=== PATIENT | male | born 1970 | race Caucasian/White ===

== ENCOUNTER 2019-11-01 17:42 | Inpatient (IN) | payer OTHER ==
[~2019-11-01] VITALS: Ht 185.4 cm; Wt 112.5 kg
[~2019-11-01 17:42] MED LIST: CEPH500; CYCL10 PO; IBUP200 PO; NAPR550 PO; OXYACE5T PO; RXCYCL10 PO; RXNAPNA550 PO; SULTRIDS PO; TRAM50 PO
[2019-11-01 20:18] LABS: BASOPHILS ABSOLUTE AUTO 0.02 K/mm3 (0.00-0.23); BASOPHILS PERCENT AUTO 0 % (0-2); EOSINOPHILS ABSOLUTE AUTO 0.11 K/mm3 (0.00-0.68); EOSINOPHILS PERCENT AUTO 1 % (0-6); Hematocrit 40.4 % (37.0-53.0); Hemoglobin 13.7 g/dL (13.5-17.5); IMMATURE GRAN ABSOLUTE AUTO 0.04 K/mm3 (0.00-0.10); IMMATURE GRAN PERCENT AUTO 0 % (0-1); LYMPHOCYTES ABSOLUTE AUTO 1.82 K/mm3 (0.84-5.20); LYMPHOCYTES PERCENT AUTO 15 % (21-46); MONOCYTES ABSOLUTE AUTO 0.88 K/mm3 (0.16-1.47); MONOCYTES PERCENT AUTO 7 % (4-13); Mean Corpuscular HGB 31.5 pg (26.0-34.0); Mean Corpuscular HGB Conc 33.9 g/dL (31.5-36.5); Mean Corpuscular Volume 93 fL (80-100); NEUTROPHILS ABSOLUTE AUTO 9.07 K/mm3 (1.96-9.15); NEUTROPHILS PERCENT AUTO 76 % (41-73); Platelet Count 203 K/mm3 (150-400); RDW Coefficient Variation 11.3 % (11.7-14.2); RDW Standard Deviation 38.9 fL (35.1-46.3); Red Blood Cell Count 4.35 M/mm3 (4.30-5.90); White Blood Cell Count 11.94 K/mm3 (4.00-11.30)
[2019-11-01 21:17] LABS: Anion Gap 6 mmol/L (6-16); Blood Urea Nitrogen 14 mg/dL (8-24); Bun/Creatinine Ratio 16.4 (12.0-20.0); CO2, Blood 26 mmol/L (21-32); Calcium, Blood 8.7 mg/dL (8.5-10.1); Chloride, Blood 102 mmol/L (98-108); Creatinine, Blood 0.85 mg/dL (0.60-1.20); Glomerular Filtration Rate >60 (60-); Glucose, Blood 228 mg/dL (70-99); Potassium, Blood 3.9 mmol/L (3.5-5.5); Sodium, Blood 134 mmol/L (136-145)
[2019-11-01] MEDS ORDERED: METF500 PO (22:30)
[2019-11-01] MEDS ORDERED: NAPR500ERA PO (22:31)
[2019-11-01] MEDS ORDERED: SULTRIDS PO (22:31)
--- NOTE | 2019-11-02 04:00 | NUR ---
SHIFT SUMMARY FOREIGN OBJECT IN ULCER, INFERIOR L FOOT. A/O, VSS, TOLERATED PO PRIOR TO NPO AT MIDNIGHT, VOIDING WELL, AMBULATES INDEPENDENTLY, USES CALL LIGHT APPROPRIATELY. REPORTS USING CBD GUMMY EVERY NIGHT TO HELP HIM SLEEP. REPORTS PAIN AT 2-3 OUT OF 10 ON A 0-10 SCALE, REFUSED PAIN MEDICATIONS DURING ADMISSION, ENCOURAGED TO REQUEST THEM IF PAIN INCREASED BEYOND ACCEPTABLE TOLERANCE. ULCER PHOTOGRAPHED AND PLACED IN CHART, PACKING PRESENT AT TIME OF ADMISSION FROM [facility] FELL OUT WHEN PT GOT IN BED, COVERED ULCER W/ STERILE GUAZE AND WATERPROOF WINDOW DRESSING, CONSULT FOR PODIATRY IN PLACE. WILL CONTINUE TO MONITOR AND WILL REPORT TO ONCOMING DAY RN.
[2019-11-02 04:58] LABS: BASOPHILS ABSOLUTE AUTO 0.02 K/mm3 (0.00-0.23); BASOPHILS PERCENT AUTO 0 % (0-2); EOSINOPHILS ABSOLUTE AUTO 0.14 K/mm3 (0.00-0.68); EOSINOPHILS PERCENT AUTO 1 % (0-6); Hematocrit 37.3 % (37.0-53.0); Hemoglobin 12.6 g/dL (13.5-17.5); IMMATURE GRAN ABSOLUTE AUTO 0.04 K/mm3 (0.00-0.10); IMMATURE GRAN PERCENT AUTO 0 % (0-1); LYMPHOCYTES ABSOLUTE AUTO 1.26 K/mm3 (0.84-5.20); LYMPHOCYTES PERCENT AUTO 11 % (21-46); MONOCYTES PERCENT AUTO 9 % (4-13); Mean Corpuscular HGB Conc 33.8 g/dL (31.5-36.5); Mean Corpuscular Volume 92 fL (80-100); Mean Platelet Volume 10.4 fL (9.1-12.4); NEUTROPHILS ABSOLUTE AUTO 9.22 K/mm3 (1.96-9.15); NEUTROPHILS PERCENT AUTO 79 % (41-73); Platelet Count 180 K/mm3 (150-400); RDW Coefficient Variation 11.4 % (11.7-14.2); RDW Standard Deviation 38.6 fL (35.1-46.3); Red Blood Cell Count 4.07 M/mm3 (4.30-5.90); White Blood Cell Count 11.68 K/mm3 (4.00-11.30)
[2019-11-02 05:10] LABS: International Normalized Ratio 1.12; Prothrombin Time Results 11.9 Sec (9.7-11.5)
[2019-11-02 05:20] LABS: Anion Gap 5 mmol/L (6-16); Blood Urea Nitrogen 14 mg/dL (8-24); Bun/Creatinine Ratio 18.2 (12.0-20.0); CO2, Blood 26 mmol/L (21-32); Calcium, Blood 8.4 mg/dL (8.5-10.1); Chloride, Blood 107 mmol/L (98-108); Creatinine, Blood 0.77 mg/dL (0.60-1.20); Glomerular Filtration Rate >60 (60-); Glucose, Blood 250 mg/dL (70-99); Potassium, Blood 4.1 mmol/L (3.5-5.5); Sodium, Blood 138 mmol/L (136-145)
--- NOTE | 2019-11-02 07:00 | NUR ---
recvd report from previous shift RN Conner/Dain. pt in the shower independently, call light on bedside table, bed in lowest position.
--- NOTE | 2019-11-02 10:30 | NUR ---
DR UREÑA IN ROOM WITH PT; THIS RN ASSISTED DR UREÑA IN BEDSIDE PROCEDURE
--- NOTE | 2019-11-02 12:00 | NUR ---
wound clinic nurse rounding on pt. certified art therapist provided pt with diebetic diet education
--- NOTE | 2019-11-02 20:54 | NUR ---
PT C/O FEELING COLD. TEMP 101.5 ALSO C/O "CAFFEINE H/A" PT REPORTS DRINKING MULTIPLE PEPSI DRINKS PER DAY AND IS NOW NEWLY DIAGNOSED DIABETIC. PT ANXIOUS. C/O FEELING LIKE HE IS IN "NURSING HOME" DUE TO BEING IN HOSPITAL FOR TREATMENT. PT ALSO C/O TACHYCARDIA WITH VANCO DOSES.PT VERB IN AM HE IS GOING TO "TAKE IT UP" WITH DR REGARDING POSSIBILITY OF OUTPT IV ANTIBIOTIC TREATMENT.DISCUSSED WITH PT POSSIBILITY OF SUGAR FREE CAFFEINATED DRINKS.REMOVED BLANKETS.NOTED L FOOT SWOLLEN WITH INCREASED WARMTH TO CALF AND FOOT.REFILL BRISK.HX NEUROPATHY BLE.ALTHOUGH C/O FEELING DR PLACED GEOVANNA WRAP TOO TIGHT.I DISCUSSED WITH PT WILL ELEVATE LLE ON PILLOWS,LOOSEN GEOVANNA WRAP,AND PLACE ICE TO ASSIST IN DECREASING SWELLING.I CALLED DR RAFI WRAY FOR HOSPITALIST AND REVIEWED ALL CONCERNS AND PT C/O PER ABOVE.TORADOL AND ATIVAN ORDERS RECEIVED.
[2019-11-03 05:30] LABS: BASOPHILS ABSOLUTE AUTO 0.02 K/mm3 (0.00-0.23); BASOPHILS PERCENT AUTO 0 % (0-2); EOSINOPHILS ABSOLUTE AUTO 0.17 K/mm3 (0.00-0.68); EOSINOPHILS PERCENT AUTO 2 % (0-6); Hematocrit 36.8 % (37.0-53.0); Hemoglobin 12.5 g/dL (13.5-17.5); IMMATURE GRAN ABSOLUTE AUTO 0.03 K/mm3 (0.00-0.10); IMMATURE GRAN PERCENT AUTO 0 % (0-1); LYMPHOCYTES ABSOLUTE AUTO 1.05 K/mm3 (0.84-5.20); LYMPHOCYTES PERCENT AUTO 11 % (21-46); MONOCYTES ABSOLUTE AUTO 0.72 K/mm3 (0.16-1.47); MONOCYTES PERCENT AUTO 8 % (4-13); Mean Corpuscular HGB 31.3 pg (26.0-34.0); Mean Corpuscular Volume 92 fL (80-100); Mean Platelet Volume 9.9 fL (9.1-12.4); NEUTROPHILS ABSOLUTE AUTO 7.51 K/mm3 (1.96-9.15); NEUTROPHILS PERCENT AUTO 79 % (41-73); Platelet Count 180 K/mm3 (150-400); RDW Coefficient Variation 11.2 % (11.7-14.2); RDW Standard Deviation 38.6 fL (35.1-46.3)
[2019-11-03 05:53] LABS: Anion Gap 6 mmol/L (6-16); Blood Urea Nitrogen 14 mg/dL (8-24); Bun/Creatinine Ratio 20.1 (12.0-20.0); CO2, Blood 25 mmol/L (21-32); Calcium, Blood 8.5 mg/dL (8.5-10.1); Chloride, Blood 105 mmol/L (98-108); Glomerular Filtration Rate >60 (60-); Glucose, Blood 222 mg/dL (70-99); Potassium, Blood 4.1 mmol/L (3.5-5.5); Sodium, Blood 136 mmol/L (136-145)
[2019-11-03 06:22] LABS: Vancomycin, Trough 5.8 ug/mL (5.0-10.0)
--- NOTE | 2019-11-03 07:12 | NUR ---
SUMMARY PT PASSING SHALOM SIMONS.ANESTHESIA HERE THIS AM AND DCD EPIDURAL.
--- NOTE | 2019-11-03 07:19 | NUR ---
SUMMARY PT AFEBRILE S/P TORADOL.VERB ADEQUATE PAIN CONTROL AND PLEASED WITH SLEEP.
--- NOTE | 2019-11-03 08:00 | NUR ---
dr macedotrate rounding on pt
--- NOTE | 2019-11-03 13:45 | NUR ---
pt outside in wheelchair with SO escorting
--- NOTE | 2019-11-03 18:54 | NUR ---
shift summary: pt a/0 x 4, pleasant/cooperative, pain controlled per MAR, tolerating ADA diet, showered himself today, urinary output 3 x unmeasured voids. pt visited with SO this shift. CBG [phone] this shift, received orders for change to medium sliding scale. Dressing change x 1 this shift.
[2019-11-03 21:23] LABS: Vancomycin, Trough 11.3 ug/mL (5.0-10.0)
[2019-11-04 04:54] LABS: BASOPHILS ABSOLUTE AUTO 0.03 K/mm3 (0.00-0.23); BASOPHILS PERCENT AUTO 0 % (0-2); EOSINOPHILS ABSOLUTE AUTO 0.29 K/mm3 (0.00-0.68); EOSINOPHILS PERCENT AUTO 3 % (0-6); Hematocrit 33.4 % (37.0-53.0); Hemoglobin 11.4 g/dL (13.5-17.5); IMMATURE GRAN ABSOLUTE AUTO 0.02 K/mm3 (0.00-0.10); IMMATURE GRAN PERCENT AUTO 0 % (0-1); LYMPHOCYTES ABSOLUTE AUTO 1.58 K/mm3 (0.84-5.20); LYMPHOCYTES PERCENT AUTO 19 % (21-46); MONOCYTES ABSOLUTE AUTO 0.81 K/mm3 (0.16-1.47); MONOCYTES PERCENT AUTO 10 % (4-13); Mean Corpuscular HGB 31.3 pg (26.0-34.0); Mean Corpuscular HGB Conc 34.1 g/dL (31.5-36.5); Mean Corpuscular Volume 92 fL (80-100); Mean Platelet Volume 10.2 fL (9.1-12.4); NEUTROPHILS ABSOLUTE AUTO 5.73 K/mm3 (1.96-9.15); NEUTROPHILS PERCENT AUTO 68 % (41-73); Platelet Count 190 K/mm3 (150-400); RDW Coefficient Variation 11.3 % (11.7-14.2); RDW Standard Deviation 38.3 fL (35.1-46.3); Red Blood Cell Count 3.64 M/mm3 (4.30-5.90); White Blood Cell Count 8.46 K/mm3 (4.00-11.30)
[2019-11-04 05:16] LABS: Anion Gap 6 mmol/L (6-16); Blood Urea Nitrogen 10 mg/dL (8-24); Bun/Creatinine Ratio 13.5 (12.0-20.0); CO2, Blood 27 mmol/L (21-32); Calcium, Blood 8.3 mg/dL (8.5-10.1); Chloride, Blood 102 mmol/L (98-108); Creatinine, Blood 0.74 mg/dL (0.60-1.20); Glomerular Filtration Rate >60 (60-); Glucose, Blood 191 mg/dL (70-99); Sodium, Blood 135 mmol/L (136-145)
--- NOTE | 2019-11-04 06:45 | NUR ---
SUMMARY PT STATES FEEING BETTER TONIGHT.TOLERATING PO.WBC IMPROVING.
--- NOTE | 2019-11-04 19:48 | NUR ---
SHIFT SUMMARY PT A&OX4, VSS, DENIES PAIN, DENIES N&V, WILMA PO. IV ABX INFUSED PER EMAR. POD2 I&D BEDSIDE, PACKING AND DRESSING CHANGED BY EQUIP MAINT ENG THIS AM; PLAN FOR DRESSING CHANGE IN 3 DAYS FROM TODAY; PT WILL NEED ABX X7DAYS; DC GYROSCOPE REPAIRER WORKING ON DC PLAN FOR ABX/HH. PT AMBULATING TO BRP AND UP TO CHAIR; NWB/HEEL TOUCH/ORTHO SHOE. REPORT PROVIDED TO LUCRECIA FINNEGAN.
--- NOTE | 2019-11-05 04:42 | NUR ---
SHIFT SUMMARY: PT POD#3 FOR I&D TO ULCER ON LEFT FOOT. WOUND PACKED WITH IODOFORM AND COVERED WITH GAUZE AND GEOVANNA WRAP. DRESSING C/D/I WITH A SCANT AMOUNT OF SEROSANGUINOUS DRG NOTED TO GAUZE. PT ABLE TO WIGGLE TOES. REPORTS N/T AT BASELINE. LLE WARM TO TOUCH, SWOLLEN AND RED. PT REPORTS SWELLING HAS DECREASED SINCE YESTERDAY. PT AMBULATING TO BATHROOM INDEPENDENTLY. ORTHO BOOT WITH AMBULATION. IV ABX INFUSING PER ORDERS. CBG 230 LAST NIGHT. PT COVERED WITH 5 UNITS OF HUMALOG PER MEDIUM SS.
[2019-11-05 05:08] LABS: BASOPHILS ABSOLUTE AUTO 0.03 K/mm3 (0.00-0.23); BASOPHILS PERCENT AUTO 0 % (0-2); EOSINOPHILS ABSOLUTE AUTO 0.26 K/mm3 (0.00-0.68); EOSINOPHILS PERCENT AUTO 4 % (0-6); Hematocrit 38.2 % (37.0-53.0); Hemoglobin 12.7 g/dL (13.5-17.5); IMMATURE GRAN ABSOLUTE AUTO 0.03 K/mm3 (0.00-0.10); IMMATURE GRAN PERCENT AUTO 0 % (0-1); LYMPHOCYTES ABSOLUTE AUTO 1.76 K/mm3 (0.84-5.20); LYMPHOCYTES PERCENT AUTO 24 % (21-46); MONOCYTES ABSOLUTE AUTO 0.65 K/mm3 (0.16-1.47); MONOCYTES PERCENT AUTO 9 % (4-13); Mean Corpuscular HGB 30.5 pg (26.0-34.0); Mean Corpuscular HGB Conc 33.2 g/dL (31.5-36.5); Mean Corpuscular Volume 92 fL (80-100); Mean Platelet Volume 9.9 fL (9.1-12.4); NEUTROPHILS ABSOLUTE AUTO 4.64 K/mm3 (1.96-9.15); NEUTROPHILS PERCENT AUTO 63 % (41-73); Platelet Count 209 K/mm3 (150-400); RDW Coefficient Variation 11.2 % (11.7-14.2); RDW Standard Deviation 37.9 fL (35.1-46.3); Red Blood Cell Count 4.17 M/mm3 (4.30-5.90); White Blood Cell Count 7.37 K/mm3 (4.00-11.30)
[2019-11-05 05:37] LABS: Anion Gap 5 mmol/L (6-16); Blood Urea Nitrogen 9 mg/dL (8-24); Bun/Creatinine Ratio 11.8 (12.0-20.0); CO2, Blood 30 mmol/L (21-32); Calcium, Blood 8.9 mg/dL (8.5-10.1); Chloride, Blood 102 mmol/L (98-108); Creatinine, Blood 0.76 mg/dL (0.60-1.20); Glomerular Filtration Rate >60 (60-); Glucose, Blood 167 mg/dL (70-99); Sodium, Blood 137 mmol/L (136-145)
--- NOTE | 2019-11-05 15:04 | NUR ---
SHIFT SUMMARY PT A&OX4, VSS, POD3 LEFT FOOT I&D, PACKING/GAUZE/GEOVANNA WRAP DRY/INTACT, ELEVATED, ICED. AMBULATES W/POST OP SHOE, HEEL TOUCH, TO BRP AND IN HALLWAY; UP TO CHAIR T/O DAY. VOIDING WELL. DENIES PAIN. WILMA ADA DIET; CBGS REQ COVERAGE, MEDIUM SLIDING SCALE. VOIDING WELL. POWERGLIDE LUE FOR DC HOME TOMORROW AFTER ABX INFUSION ( LONG ABX HAVE ARRIVED TO PT'S HOME/VERIFY WITH DC UTILITY WORKER PRODUCTION VAUGHN BULLARD/PT FAMILY PRIOR TO DC), ABX ORDERED FOR HOME INFUSION THEN TRANSITION TO [facility], FU WITH DR UREÑA FOR DRESSING CHANGE OUTPT. WILL REPORT TO ONCOMING LUCRECIA FINNEGAN.
--- NOTE | 2019-11-05 18:39 | NUR ---
TELEPHONE CALL TO HOSPITALIST RE VENOUS DOPPLER RESULT OF SVT IN RAC. NEW ORDERS RECEIVED: LOVENOX 40 MG DAILY START NOW AND ASA 325 MG DAILY START NOW AND WARM COMPRESS.
--- NOTE | 2019-11-06 04:26 | NUR ---
SHIFT SUMMARY: PT POD#4 FOR I&D TO LEFT FOOT. NO SIGNIFICANT CHANGES THIS SHIFT. LEFT FOOT WRAPPED IN IODOFORM, GAUZE AND GEOVANNA WRAP. GAUZE CHANGED THIS SHIFT. SMALL AMOUNT OF SEROUS FLUID NOTED TO GAUZE DRESSINGS. PT DENIES PAIN. AMBULATING HALLWAY WITH ORTHO SHOE PER ORDERS. PT HAD A SHOWER THIS SHIFT. IV ABX INFUSING PER EMAR. POSSIBLE DISCHARGE HOME TODAY PENDING SHIPMENT OF IV ABX.
--- NOTE | 2019-11-06 12:52 | NUR ---
Patient is lying in bed and alert. Patient immediately tells me about the personal and relationship issues that he has struggled with in recent years, about his spiritual journey and about the medical conditions that he is dealing with. Patient is tearful at times as he shares his story. I listen empathically, hear confession, reinforce helpful attitudes and practices and provide spiritual guidance and prayer. Patient responds well and shows signs of catharsis and improved hope. I will continue to be available to patient and family.
[2019-11-06] MEDS ORDERED: ACET325 PO (13:25)
[2019-11-06] MEDS ORDERED: ASPI325 PO (13:26)
[2019-11-06] MEDS ORDERED: DOCU100 PO (13:27)
[2019-11-06] MEDS ORDERED: HUMULIN R100 UNIT/2 SC (13:29)
[2019-11-06] MEDS ORDERED: MERREM1 G1 IV (13:30)
[2019-11-06] MEDS ORDERED: ONDA4ODT MM (13:31)
[2019-11-06] MEDS ORDERED: TRAM50 PO (13:32)
[2019-11-06] MEDS ORDERED: LACTOBACILLUS1 EAC4 PO (13:35)
--- NOTE | 2019-11-06 17:13 | NUR ---
DISCHARGED REVIEWED DC PAPERWORK W/PT; VERBALIZED UNDERSTANDING. 1600 ABX COMPLETED INFUSION. PT DEMONSTRTATED FLUSHING POWERGLIDE. PT LEFT UNIT IN WC W/POSSESSIONS AND DC PAPERWORK IN HAND ACCOMPANIED BY SPOUSE.
== END 2019-11-06 17:15 | disposition home or self-care (01) | DRG 872 ==
LOC: ER 17:42 → SURS 22:02
PROVIDERS: Emergency Medicine; Family Medicine; Nurse Practitioner Acute Care; ADMIT Internal Medicine
PROC: 0H9NXZZ Drainage of Left Foot Skin, External Approach (ICD-10-PCS; principal; 2019-11-03)
DX: A40.1 Sepsis due to streptococcus, group B (principal); L03.116 Cellulitis of left lower limb; S90.852A Superficial foreign body, left foot, initial encounter; F41.9 Anxiety disorder, unspecified; Z87.891 Personal history of nicotine dependence; L97.529 Non-pressure chronic ulcer of other part of left foot with unspecified severity; E11.42 Type 2 diabetes mellitus with diabetic polyneuropathy; Z79.4 Long term (current) use of insulin; E11.621 Type 2 diabetes mellitus with foot ulcer; Z20.828 Contact with and (suspected) exposure to other viral communicable diseases
CPT/HCPCS: 36415; 80048; 80202; 82947; 83605; 85025; 85610; 85730; 86140; 87040; 90471; 93971; 96365; 96375; 99284-25; A9270; A9270-GY; J0692; J1650; J1885; J2185; J2543; J3370; J7030; J7050; U0002

== ENCOUNTER 2019-11-07 00:27 | Day surgery (SDC) | payer OTHER ==
[~2019-11-07 00:27] MED LIST changes: +ACET325 PO; +ASPI325 PO; +DOCU100 PO; +HUMULIN R100 UNIT/2 SC; +LACTOBACILLUS1 EAC4 PO; +MERREM1 G1 IV; +METF500 PO; +NAPR500ERA PO; +ONDA4ODT MM
== END 2019-11-07 22:34 | disposition home or self-care (01) ==
LOC: WOUND 00:27
DX: E11.621 Type 2 diabetes mellitus with foot ulcer (principal); L97.523 Non-pressure chronic ulcer of other part of left foot with necrosis of muscle; S91.302A Unspecified open wound, left foot, initial encounter; L03.116 Cellulitis of left lower limb; F32.9 Major depressive disorder, single episode, unspecified; F41.9 Anxiety disorder, unspecified; Z79.82 Long term (current) use of aspirin; Z79.4 Long term (current) use of insulin
CPT/HCPCS: G0463

== ENCOUNTER 2019-11-08 00:09 | Day surgery (SDC) | payer OTHER | END 2019-11-08 22:51 | disposition home or self-care (01) | LOC: WOUND 00:09 | DX: E11.622 Type 2 diabetes mellitus with other skin ulcer (principal); L97.523 Non-pressure chronic ulcer of other part of left foot with necrosis of muscle; S91.302A Unspecified open wound, left foot, initial encounter; X58.XXXA Exposure to other specified factors, initial encounter; L03.116 Cellulitis of left lower limb; E11.621 Type 2 diabetes mellitus with foot ulcer; L97.509 Non-pressure chronic ulcer of other part of unspecified foot with unspecified severity; Z79.82 Long term (current) use of aspirin; Z79.4 Long term (current) use of insulin; Z79.899 Other long term (current) drug therapy | CPT/HCPCS: G0463 ==

== ENCOUNTER 2019-11-08 11:16 | Emergency (ER) | payer OTHER ==
[~2019-11-08] VITALS: Ht 185.4 cm; Wt 108.9 kg
== END 2019-11-08 12:30 | disposition home or self-care (01) ==
LOC: ER 11:16
DX: Z45.2 Encounter for adjustment and management of vascular access device (principal); E11.621 Type 2 diabetes mellitus with foot ulcer; Z79.84 Long term (current) use of oral hypoglycemic drugs; Z79.82 Long term (current) use of aspirin; Z79.4 Long term (current) use of insulin; Z79.899 Other long term (current) drug therapy; Z87.891 Personal history of nicotine dependence
CPT/HCPCS: 99282; J2997

== ENCOUNTER 2019-11-11 00:27 | Day surgery (SDC) | payer OTHER ==
[2019-11-11] MEDS ORDERED: AMOX-CLAV 875-1 EACH PO (10:55)
== END 2019-11-11 22:41 | disposition home or self-care (01) ==
LOC: WOUND 00:27
DX: E11.621 Type 2 diabetes mellitus with foot ulcer (principal); L97.523 Non-pressure chronic ulcer of other part of left foot with necrosis of muscle; L03.116 Cellulitis of left lower limb; S91.302A Unspecified open wound, left foot, initial encounter; X58.XXXA Exposure to other specified factors, initial encounter; Z79.82 Long term (current) use of aspirin; Z79.4 Long term (current) use of insulin
CPT/HCPCS: G0463

== ENCOUNTER 2019-11-14 00:24 | Day surgery (SDC) | payer OTHER ==
[~2019-11-14 00:24] MED LIST changes: +AMOX-CLAV 875-1 EACH PO
== END 2019-11-14 23:06 | disposition home or self-care (01) ==
LOC: WOUND 00:24
DX: E11.621 Type 2 diabetes mellitus with foot ulcer (principal); L03.116 Cellulitis of left lower limb; S91.302D Unspecified open wound, left foot, subsequent encounter; L97.523 Non-pressure chronic ulcer of other part of left foot with necrosis of muscle; Z79.4 Long term (current) use of insulin; Z79.899 Other long term (current) drug therapy
CPT/HCPCS: G0463

== ENCOUNTER 2019-11-15 00:12 | Day surgery (SDC) | payer OTHER | END 2019-11-15 22:35 | disposition home or self-care (01) | LOC: WOUND 00:12 | DX: E11.52 Type 2 diabetes mellitus with diabetic peripheral angiopathy with gangrene (principal); L97.523 Non-pressure chronic ulcer of other part of left foot with necrosis of muscle; S91.302A Unspecified open wound, left foot, initial encounter; L03.116 Cellulitis of left lower limb; F41.9 Anxiety disorder, unspecified; F32.9 Major depressive disorder, single episode, unspecified; Z79.82 Long term (current) use of aspirin; Z79.4 Long term (current) use of insulin; Z79.899 Other long term (current) drug therapy; X58.XXXA Exposure to other specified factors, initial encounter ==

== ENCOUNTER 2019-11-20 13:46 | Day surgery (SDC) | payer OTHER | END 2019-11-20 22:37 | disposition home or self-care (01) | LOC: WOUND 13:46 | DX: E11.621 Type 2 diabetes mellitus with foot ulcer (principal); L97.523 Non-pressure chronic ulcer of other part of left foot with necrosis of muscle; L03.116 Cellulitis of left lower limb; S91.302D Unspecified open wound, left foot, subsequent encounter; Z79.4 Long term (current) use of insulin | CPT/HCPCS: G0463 ==

== ENCOUNTER 2019-11-22 00:06 | Day surgery (SDC) | payer OTHER | END 2019-11-22 22:37 | disposition home or self-care (01) | LOC: WOUND 00:06 | DX: E11.621 Type 2 diabetes mellitus with foot ulcer (principal); L97.523 Non-pressure chronic ulcer of other part of left foot with necrosis of muscle; S91.302D Unspecified open wound, left foot, subsequent encounter; L03.116 Cellulitis of left lower limb; F41.9 Anxiety disorder, unspecified; F32.9 Major depressive disorder, single episode, unspecified; Z79.899 Other long term (current) drug therapy | CPT/HCPCS: G0463 ==

== ENCOUNTER 2019-12-05 00:27 | Day surgery (SDC) | payer OTHER | END 2019-12-05 22:44 | disposition home or self-care (01) | LOC: WOUND 00:27 | DX: E11.621 Type 2 diabetes mellitus with foot ulcer (principal); L97.523 Non-pressure chronic ulcer of other part of left foot with necrosis of muscle; L03.116 Cellulitis of left lower limb; S91.302D Unspecified open wound, left foot, subsequent encounter; Z79.4 Long term (current) use of insulin; Z79.899 Other long term (current) drug therapy; Z79.82 Long term (current) use of aspirin | CPT/HCPCS: G0463 ==

== ENCOUNTER → 2019-12-05 | Outpatient (CLI) | payer OTHER | END | disposition home or self-care (01) | LOC: LAB 12:13 → LAB SHORT 12:13 | DX: E11.621 Type 2 diabetes mellitus with foot ulcer (principal); L97.425 Non-pressure chronic ulcer of left heel and midfoot with muscle involvement without evidence of necrosis; L02.619 Cutaneous abscess of unspecified foot; L03.119 Cellulitis of unspecified part of limb | CPT/HCPCS: 87070; 87075; 87077; 87147; 87186; 87205 ==

== ENCOUNTER 2019-12-06 00:46 | Day surgery (SDC) | payer OTHER | END 2019-12-06 12:00 | disposition home or self-care (01) | LOC: WOUND 00:46 | DX: E11.621 Type 2 diabetes mellitus with foot ulcer (principal); L97.523 Non-pressure chronic ulcer of other part of left foot with necrosis of muscle; S91.302D Unspecified open wound, left foot, subsequent encounter; L03.116 Cellulitis of left lower limb; F41.9 Anxiety disorder, unspecified; F32.9 Major depressive disorder, single episode, unspecified; Z79.82 Long term (current) use of aspirin; Z79.4 Long term (current) use of insulin; Z79.899 Other long term (current) drug therapy | CPT/HCPCS: G0463 ==

== ENCOUNTER 2019-12-13 08:52 | Day surgery (SDC) | payer OTHER | END 2019-12-13 22:59 | disposition home or self-care (01) | LOC: WOUND 08:52 | DX: E11.621 Type 2 diabetes mellitus with foot ulcer (principal); L97.523 Non-pressure chronic ulcer of other part of left foot with necrosis of muscle; S91.302D Unspecified open wound, left foot, subsequent encounter; L03.116 Cellulitis of left lower limb; F41.9 Anxiety disorder, unspecified; F32.9 Major depressive disorder, single episode, unspecified; Z79.4 Long term (current) use of insulin ==

== ENCOUNTER 2019-12-20 02:01 | Day surgery (SDC) | payer OTHER | END 2019-12-20 22:35 | disposition home or self-care (01) | LOC: WOUND 02:01 | DX: E11.621 Type 2 diabetes mellitus with foot ulcer (principal); L97.523 Non-pressure chronic ulcer of other part of left foot with necrosis of muscle; S91.302D Unspecified open wound, left foot, subsequent encounter; L03.116 Cellulitis of left lower limb; F41.9 Anxiety disorder, unspecified; F32.9 Major depressive disorder, single episode, unspecified; Z79.4 Long term (current) use of insulin; Z79.899 Other long term (current) drug therapy | CPT/HCPCS: G0463 ==

== ENCOUNTER 2019-12-27 01:56 | Day surgery (SDC) | payer OTHER | END 2019-12-27 22:41 | disposition home or self-care (01) | LOC: WOUND 01:56 | DX: E11.621 Type 2 diabetes mellitus with foot ulcer (principal); L97.523 Non-pressure chronic ulcer of other part of left foot with necrosis of muscle; S91.302D Unspecified open wound, left foot, subsequent encounter; Z79.4 Long term (current) use of insulin | CPT/HCPCS: G0463 ==

== ENCOUNTER 2021-06-26 11:43 | Emergency (ER) | payer OTHER ==
[~2021-06-26] VITALS: Ht 185.4 cm; Wt 112.9 kg
[2021-06-26 12:40] LABS: BASOPHILS ABSOLUTE AUTO 0.02 K/mm3 (0.00-0.23); BASOPHILS PERCENT AUTO 0 % (0-2); EOSINOPHILS PERCENT AUTO 3 % (0-6); Hematocrit 41.4 % (37.0-53.0); Hemoglobin 14.1 g/dL (13.5-17.5); IMMATURE GRAN ABSOLUTE AUTO 0.01 K/mm3 (0.00-0.10); IMMATURE GRAN PERCENT AUTO 0 % (0-1); LYMPHOCYTES ABSOLUTE AUTO 2.01 K/mm3 (0.84-5.20); LYMPHOCYTES PERCENT AUTO 32 % (21-46); MONOCYTES ABSOLUTE AUTO 0.38 K/mm3 (0.16-1.47); MONOCYTES PERCENT AUTO 6 % (4-13); Mean Corpuscular HGB 31.8 pg (26.0-34.0); Mean Corpuscular HGB Conc 34.1 g/dL (31.5-36.5); Mean Corpuscular Volume 93 fL (80-100); NEUTROPHILS ABSOLUTE AUTO 3.62 K/mm3 (1.96-9.15); NEUTROPHILS PERCENT AUTO 58 % (41-73); Platelet Count 192 K/mm3 (150-400); RDW Coefficient Variation 12.1 % (11.7-14.2); RDW Standard Deviation 42.1 fL (35.1-46.3); Red Blood Cell Count 4.44 M/mm3 (4.30-5.90); White Blood Cell Count 6.24 K/mm3 (4.00-11.30)
[2021-06-26] MEDS ORDERED: Metformin HCl750 MG PO (12:54)
[2021-06-26 12:57] LABS: Alanine Aminotransfer (ALT/SGP 31 U/L (12-78); Albumin/Globulin Ratio 1.1 (0.8-1.8); Alk Phos 58 U/L (50-136); Anion Gap 4 mmol/L (6-16); Aspartate Aminotrans (AST/SGOT 18 U/L (12-37); Bilirubin, Total 2.2 mg/dL (0.1-1.0); Blood Urea Nitrogen 13 mg/dL (8-24); CO2, Blood 29 mmol/L (21-32); Calcium, Blood 9.2 mg/dL (8.5-10.1); Chloride, Blood 105 mmol/L (98-108); Creatinine, Blood 0.68 mg/dL (0.60-1.20); Globulin, Blood 3.6 g/dL (2.2-4.0); Glomerular Filtration Rate >60 (60-); Glucose, Blood 237 mg/dL (70-99); Sodium, Blood 138 mmol/L (136-145); Total Protein, Blood 7.6 g/dL (6.4-8.2)
== END 2021-06-26 13:28 | disposition home or self-care (01) ==
LOC: ER 11:43
PROVIDERS: Physician Assistant
DX: S90.221A Contusion of right lesser toe(s) with damage to nail, initial encounter (principal); E11.40 Type 2 diabetes mellitus with diabetic neuropathy, unspecified; E11.621 Type 2 diabetes mellitus with foot ulcer; L97.519 Non-pressure chronic ulcer of other part of right foot with unspecified severity; Z79.82 Long term (current) use of aspirin; Z79.4 Long term (current) use of insulin; Z79.899 Other long term (current) drug therapy; X58.XXXA Exposure to other specified factors, initial encounter
CPT/HCPCS: 36415; 73630; 80053; 83690; 85025; 99283-25

== ENCOUNTER 2022-01-17 16:22 | Emergency (ER) | payer OTHER ==
[~2022-01-17] VITALS: Ht 185.4 cm; Wt 113.4 kg
[~2022-01-17 16:22] MED LIST changes: +Metformin HCl750 MG PO
[2022-01-17 16:53] LABS: BASOPHILS ABSOLUTE AUTO 0.03 K/mm3 (0.00-0.23); BASOPHILS PERCENT AUTO 0 % (0-2); EOSINOPHILS ABSOLUTE AUTO 0.15 K/mm3 (0.00-0.68); EOSINOPHILS PERCENT AUTO 2 % (0-6); Hemoglobin 14.9 g/dL (13.5-17.5); IMMATURE GRAN ABSOLUTE AUTO 0.03 K/mm3 (0.00-0.10); IMMATURE GRAN PERCENT AUTO 0 % (0-1); LYMPHOCYTES ABSOLUTE AUTO 2.75 K/mm3 (0.84-5.20); LYMPHOCYTES PERCENT AUTO 29 % (21-46); MONOCYTES ABSOLUTE AUTO 0.51 K/mm3 (0.16-1.47); MONOCYTES PERCENT AUTO 5 % (4-13); Mean Corpuscular HGB 32.3 pg (26.0-34.0); Mean Corpuscular HGB Conc 35.5 g/dL (31.5-36.5); Mean Corpuscular Volume 91 fL (80-100); Mean Platelet Volume 10.1 fL (9.1-12.4); NEUTROPHILS PERCENT AUTO 64 % (41-73); Platelet Count 212 K/mm3 (150-400); RDW Coefficient Variation 11.9 % (11.7-14.2); RDW Standard Deviation 39.9 fL (35.1-46.3); Red Blood Cell Count 4.62 M/mm3 (4.30-5.90); White Blood Cell Count 9.57 K/mm3 (4.00-11.30)
[2022-01-17 17:13] LABS: Albumin, Blood 4.1 g/dL (3.4-5.0); Albumin/Globulin Ratio 1.2 (0.8-1.8); Bilirubin, Total 1.6 mg/dL (0.1-1.0); Bun/Creatinine Ratio 20.7 (12.0-20.0); Calcium, Blood 9.2 mg/dL (8.5-10.1); Creatinine, Blood 0.77 mg/dL (0.60-1.20); Globulin, Blood 3.4 g/dL (2.2-4.0); Potassium, Blood 5.2 mmol/L (3.5-5.5); Total Protein, Blood 7.5 g/dL (6.4-8.2)
[2022-01-17] MEDS ORDERED: INSULIN GL100 UNIT/2 SC (18:23)
[2022-01-17 18:24] LABS: International Normalized Ratio 1.04; Prothrombin Time Results 10.9 Sec (9.7-11.5)
[2022-01-17] MEDS ORDERED: Metformin HCl750 MG PO (18:24)
== END 2022-01-17 19:21 | disposition home or self-care (01) ==
LOC: ER 16:22
PROVIDERS: Physician Assistant
DX: M79.604 Pain in right leg (principal); Z79.4 Long term (current) use of insulin
CPT/HCPCS: 36415; 80053; 85025; 85610; 93971

== ENCOUNTER 2022-12-23 08:40 | Emergency (ER) | payer OTHER ==
[~2022-12-23] VITALS: Ht 185.4 cm; Wt 112.5 kg
[~2022-12-23 08:40] MED LIST changes: +CEPH500 PO; +INSULIN GL100 UNIT/2 SC
[2022-12-23 09:47] LABS: BASOPHILS ABSOLUTE AUTO 0.03 K/mm3 (0.00-0.23); BASOPHILS PERCENT AUTO 1 % (0-2); EOSINOPHILS ABSOLUTE AUTO 0.22 K/mm3 (0.00-0.68); EOSINOPHILS PERCENT AUTO 4 % (0-6); Hematocrit 40.4 % (37.0-53.0); Hemoglobin 14.1 g/dL (13.5-17.5); IMMATURE GRAN ABSOLUTE AUTO 0.01 K/mm3 (0.00-0.10); IMMATURE GRAN PERCENT AUTO 0 % (0-1); LYMPHOCYTES ABSOLUTE AUTO 1.74 K/mm3 (0.84-5.20); LYMPHOCYTES PERCENT AUTO 31 % (21-46); MONOCYTES ABSOLUTE AUTO 0.35 K/mm3 (0.16-1.47); MONOCYTES PERCENT AUTO 6 % (4-13); Mean Corpuscular HGB 31.9 pg (26.0-34.0); Mean Corpuscular HGB Conc 34.9 g/dL (31.5-36.5); Mean Corpuscular Volume 91 fL (80-100); NEUTROPHILS ABSOLUTE AUTO 3.34 K/mm3 (1.96-9.15); NEUTROPHILS PERCENT AUTO 59 % (41-73); Platelet Count 200 K/mm3 (150-400); RDW Coefficient Variation 11.7 % (11.7-14.2); RDW Standard Deviation 39.3 fL (35.1-46.3); Red Blood Cell Count 4.42 M/mm3 (4.30-5.90); White Blood Cell Count 5.69 K/mm3 (4.00-11.30)
[2022-12-23 10:11] LABS: Albumin/Globulin Ratio 1.1 (0.8-1.8); Bilirubin, Total 1.7 mg/dL (0.1-1.0); Bun/Creatinine Ratio 18.2 (12.0-20.0); Creatinine, Blood 0.66 mg/dL (0.60-1.20); Globulin, Blood 3.6 g/dL (2.2-4.0); Potassium, Blood 4.1 mmol/L (3.5-5.5); Total Protein, Blood 7.6 g/dL (6.4-8.2)
[2022-12-23] MEDS ORDERED: Lisinopril2.5 MG PO (11:09)
[2022-12-23] MEDS ORDERED: OZEMPIC0.25 MG/02 (11:09)
[2022-12-23 12:45] VITALS: BP 159/99
== END 2022-12-23 12:57 | disposition home or self-care (01) ==
LOC: ER 08:40
PROVIDERS: Physician Assistant
DX: R51.9 Headache, unspecified (principal); I10 Essential (primary) hypertension; R07.89 Other chest pain; I44.0 Atrioventricular block, first degree; R00.1 Bradycardia, unspecified; E11.9 Type 2 diabetes mellitus without complications; Z79.4 Long term (current) use of insulin; Z79.84 Long term (current) use of oral hypoglycemic drugs; Z79.899 Other long term (current) drug therapy
CPT/HCPCS: 36415; 70450; 80053; 84484; 85025; 93005; 93010; 96374; 99284-25; J1885

== ENCOUNTER → 2024-11-05 | Outpatient (CLI) | payer OTHER ==
[~2024-11-05] MED LIST changes: +Lisinopril2.5 MG PO; +OZEMPIC0.25 MG/02
== END ==
LOC: LAB 15:22 → LAB SHORT 15:22
DX: L03.032 Cellulitis of left toe (principal)
CPT/HCPCS: 87070; 87077; 87186; 87205

== ENCOUNTER → 2024-11-15 | Outpatient (CLI) | payer OTHER ==
[2024-11-18 07:07] LABS: APTIMA MEDIA TYPE Urine; C. TRACHOMATIS BY TMA Negative (Negative); N. GONORRHOEAE BY TMA Negative (Negative); T. VAGINALIS BY TMA Negative (Negative)
== END ==
LOC: LAB SHORT 12:04 → LAB 12:04
PROVIDERS: Nurse Practitioner Family
DX: Z11.3 Encounter for screening for infections with a predominantly sexual mode of transmission (principal); R30.0 Dysuria
CPT/HCPCS: 87491; 87591; 87661

== ENCOUNTER → 2024-11-18 | Outpatient (CLI) | payer OTHER | END | disposition home or self-care (01) | LOC: LAB 19:11 → LAB SHORT 19:11 | DX: B35.6 Tinea cruris (principal) | CPT/HCPCS: 87070; 87075; 87205 ==

== ENCOUNTER 2025-03-03 11:31 | Emergency (ER) | payer OTHER ==
[~2025-03-03] VITALS: Ht 182.9 cm; Wt 90.7 kg
[2025-03-03 11:54] VITALS: BP 202/94
[2025-03-03] MEDS ORDERED: Dexamethasone Sod Phos 10 MG/ML 1ML VIAL PO ONE (12:05)
[2025-03-03] MEDS ORDERED: METPRE4DP PO ×2 (12:11→12:40)
== END 2025-03-03 12:41 | disposition home or self-care (01) ==
LOC: ER 11:31
DX: M25.512 Pain in left shoulder (principal); M54.10 Radiculopathy, site unspecified; I10 Essential (primary) hypertension; E11.9 Type 2 diabetes mellitus without complications; Z79.84 Long term (current) use of oral hypoglycemic drugs; Z79.4 Long term (current) use of insulin; Z79.899 Other long term (current) drug therapy
CPT/HCPCS: 99283; J1100